=== PATIENT | male | born 1995 | race African-American/Black ===

== ENCOUNTER 2017-08-29 06:10 | Emergency (ER) | payer MEDICAID ==
[~2017-08-29] VITALS: Ht 193 cm; Wt 90.0 kg
[2017-08-29] MEDS ORDERED: PREDNISONE 20MG TABLET PO STA (06:29)
[2017-08-29 07:22] LABS: BASOPHILS % 1.5 % (0.0-2.0); EOSINOPHILS % 11.5 % (0.0-5.0); HEMATOCRIT. 45.8 % (42.0-52.0); HEMOGLOBIN. 15.5 g/dL (14.0-18.0); LYMPHOCYTES % 28.4 % (20.0-50.0); MEAN CORPUSCULAR HEMOGLOBIN 31.7 pg (28.0-32.0); MEAN CORPUSCULAR VOLUME 93.7 fL (80.0-94.0); MEAN PLATELET VOLUME 7.8 fl (7.4-10.4); MONOCYTES % 6.3 % (2.0-8.0); NEUTROPHILS % 52.3 % (40.0-76.0); PLATELET 275 x1000/uL (130-400); RED BLOOD CELL COUNT 4.89 mill/uL (4.7-6.1); RED CELL DISTRIBUTION WIDTH 12.4 % (11.6-14.6)
[2017-08-29 07:32] LABS: CHLORIDE 107 mEq/L (98-107)
[2017-08-29 07:41] LABS: CARBON DIOXIDE 23 mEq/L (21-32)
[2017-08-29 07:52] VITALS: BP 138/76
== END 2017-08-29 07:54 | disposition home or self-care (01) ==
LOC: ER 06:18
DX: J45.901 Unspecified asthma with (acute) exacerbation (principal)
CPT/HCPCS: 36415; 71010; 80053; 85025; 87804; 93005; 99285; J7512; Z7610

== ENCOUNTER 2017-09-21 19:30 | Emergency (ER) | payer MEDICAID ==
[~2017-09-21] VITALS: Ht 193 cm; Wt 87.0 kg
[2017-09-21 19:53] VITALS: BP 148/79
== END 2017-09-22 | disposition left against medical advice (07) ==
LOC: ER 19:30
DX: J45.909 Unspecified asthma, uncomplicated (principal); Z53.21 Procedure and treatment not carried out due to patient leaving prior to being seen by health care provider

== ENCOUNTER 2017-10-12 07:43 | Emergency (ER) | payer MEDICAID ==
[~2017-10-12] VITALS: Ht 195.6 cm; Wt 87.0 kg
[2017-10-12] MEDS ORDERED: IPRATROPIUM BROMIDE (0.02%) 0.5MG/2.5ML NEB HHN STA (08:47)
[2017-10-12] MEDS ORDERED: PREDNISONE 20MG TABLET PO STA (08:47)
[2017-10-12] MEDS ORDERED: ALBUTEROL (0.083%) 2.5MG/3ML NEB HHN STA (08:47)
[2017-10-12 11:36] VITALS: BP 122/78
== END 2017-10-12 11:38 | disposition home or self-care (01) ==
LOC: ER 08:01
DX: J45.901 Unspecified asthma with (acute) exacerbation (principal)
CPT/HCPCS: 71045; 94640; 99283; J7512; J7611

== ENCOUNTER 2017-12-12 20:36 | Emergency (ER) | payer MEDICAID ==
[~2017-12-12] VITALS: Ht 193 cm; Wt 95.4 kg
[2017-12-12] MEDS ORDERED: IPRATROPIUM BROMIDE (0.02%) 0.5MG/2.5ML NEB HHN STA (23:59)
[2017-12-12] MEDS ORDERED: ALBUTEROL (0.083%) 2.5MG/3ML NEB HHN STA (23:59)
[2017-12-12] MEDS ORDERED: PREDNISONE 20MG TABLET PO STA (23:59)
[2017-12-13 00:15] VITALS: BP 117/69
== END 2017-12-13 00:50 | disposition home or self-care (01) ==
LOC: ER 20:36
DX: J45.901 Unspecified asthma with (acute) exacerbation (principal); Z76.0 Encounter for issue of repeat prescription; Y93.67 Activity, basketball
CPT/HCPCS: 99283; J7512

== ENCOUNTER 2017-12-17 14:10 | Emergency (ER) | payer MEDICAID ==
[~2017-12-17] VITALS: Ht 193 cm; Wt 95.0 kg
[2017-12-17 14:30] VITALS: BP 160/80
== END 2017-12-17 20:05 | disposition left against medical advice (07) ==
LOC: ER 15:14
DX: R05 Cough (principal); R09.3 Abnormal sputum; Z53.21 Procedure and treatment not carried out due to patient leaving prior to being seen by health care provider

== ENCOUNTER 2018-01-16 17:28 | Emergency (ER) | payer MEDICAID ==
[~2018-01-16] VITALS: Ht 195.6 cm; Wt 97.0 kg
[2018-01-16 18:22] VITALS: BP 138/71
== END 2018-01-16 22:57 | disposition left against medical advice (07) ==
LOC: ER 22:45
DX: J45.909 Unspecified asthma, uncomplicated (principal)
CPT/HCPCS: 99281